=== PATIENT | female | born 1985 | race Caucasian/White ===

== ENCOUNTER 2016-04-05 19:14 | Emergency (ER) | payer BC ==
[2016-04-05 20:47] VITALS: BP 96/51
[2016-04-05] MEDS ORDERED: Fluconazole 100 MG TAB* TAB PO ONE (21:32)
--- NOTE | 2016-04-05 21:41 | UC ---
Complaint Female HPI - HPI Summary HPI Summary: vaginal itching, redness, swelling burning. No rash. Feels like prior yeast infections, though she has also had bacterial vaginosis and wishes to be tested. No fever. No abd pain. NO vomiting. No concern re GC/chlamydia - History Of Current Complaint Chief Complaint: UCGeneralIllness Stated Complaint: BACK PAIN, PAINFUL URINATION Time Seen by Provider: 04/05/16 21:02 Hx Obtained From: Patient Hx Last Menstrual Period: 03/19/16 Onset/Duration: Gradual Onset, Lasting Weeks - 1 Timing: Constant Severity Initially: Mild Severity Currently: Moderate Character: Dull Aggravating Factor(s): Nothing Alleviating Factor(s): Nothing Associated Signs And Symptoms: Positive: Vaginal Discharge, Genital Swelling - mild vulvar swelling. Negative: Nausea, Vomiting(# Of Episodes =), Genital Blisters, Retained Foregin Body (Specify) Related Hx: Similar Episode/Dx as: - yeast, bacterial overgrowth - Risk Factors Ectopic Risk Factor: Negative Ovarian Torsion Risk Factor: Negative - Allergies/Home Medications Allergies/Adverse Reactions: Allergies Allergy/AdvReac Type Severity Reaction Status Date / Time No Known Allergies Allergy Verified 04/05/16 20:47 Home Medications: Home Medications Vaginal Yeast Cream 1 applic DAILY PRN 04/05/16 [History] PMH/Surg Hx/FS Hx/Imm Hx Previously Healthy: Yes - Surgical History Surgical History: Yes Surgery Procedure, Year, and Place: 3 acl surgeries - Social History Occupation: Employed Full-time Lives: With Family Alcohol Use: Rare Substance Use Type: None Smoking Status (MU): Never Smoked Tobacco - Immunization History Most Recent Influenza Vaccination: [id number] Review of Systems Constitutional: Negative Skin: Negative Eyes: Negative ENT: Negative Respiratory: Negative Cardiovascular: Negative Gastrointestinal: Negative Genitourinary: Other - vaginal itching/burning Motor: Negative Neurovascular: Negative Musculoskeletal: Negative Neurological: Negative Psychological: Negative All Other Systems Reviewed And Are Negative: Yes Physical Exam Triage Information Reviewed: Yes Appearance: Well-Appearing, No Pain Distress, Well-Nourished Vital Signs: Initial Vital Signs Temp 99.5 F 04/05/16 20:41 Pulse 62 04/05/16 20:41 Resp 17 04/05/16 20:41 BP 96/51 04/05/16 20:41 Pulse Ox 100 04/05/16 20:41 Vital Signs Reviewed: Yes Eye Exam: Normal Neck exam: Normal Respiratory Exam: Normal Cardiovascular Exam: Normal Abdomen Description: Positive: Other: - I did not examine her vagina. She did her own Affirm swab. Musculoskeletal Exam: Normal Neurological Exam: Normal Psychological Exam: Normal Skin Exam: Normal Complaint Female Dx - Differential Dx/Diagnosis Differential Diagnosis/HQI/PQRI: Sexually Transmitted Disease Provider Diagnoses: vaginal yeast infection Discharge - Discharge Plan Condition: Stable Disposition: HOME Prescriptions: Fluconazole [Diflucan 150 MG (NF)] 150 mg PO ONCE #1 tab Patient Education Materials: Vulvovaginal Candidiasis (ED) Referrals: KATRIN Hester [Primary Care Provider] - Additional Instructions: We sent off tests for vaginal yeast, bacterial overgrowth, and trichomonas. Results will be available in 2-3 days. If we see anything other than a yeast infection, we will contact you. Call here on Wed to double-check results if you haven't heard anything.
== END 2016-04-05 21:59 | disposition home or self-care (01) ==
LOC: UCCORT 19:14
DX: B37.3 Candidiasis of vulva and vagina (principal)
CPT/HCPCS: 87480; 87510; 87660; 99202; A9270-GY; G0463

== ENCOUNTER 2016-07-04 20:25 | Emergency (ER) | payer BC ==
[2016-07-04 20:47] VITALS: BP 106/55
--- NOTE | 2016-07-04 21:12 | UC ---
Throat Pain/Nasal [place] HPI - History of Current Complaint Chief Complaint: UCGeneralIllness Stated Complaint: SINUS Time Seen by Provider: 07/04/16 21:02 Hx Obtained From: Patient Hx Last Menstrual Period: 06/16/16 ?: No Onset/Duration: Gradual Onset, Lasting Weeks, Still Present Severity: Moderate Cough: None Associated Signs & Symptoms: Positive: Sinus Discomfort, Nasal Discharge, Fever Related History: T & A - Epiglottits Risk Factors Epiglottis Risk Factors: Negative - Allergies/Home Medications Allergies/Adverse Reactions: Allergies Allergy/AdvReac Type Severity Reaction Status Date / Time No Known Allergies Allergy Verified 07/04/16 20:47 Home Medications: Home Medications Pseudoephedrine HCL ER TAB* [Sudafed 12 Hour*] 120 mg PO BID 07/04/16 [History Confirmed 07/04/16] PMH/Surg Hx/FS Hx/Imm Hx Previously Healthy: No - ADHD - Surgical History Surgical History: Yes Surgery Procedure, Year, and Place: 3 acl surgeries - Family History Known Family History: Positive: Cardiac Disease, Hypertension, Diabetes - Social History Occupation: Employed Full-time Lives: With Family Alcohol Use: Rare Substance Use Type: None Smoking Status (MU): Never Smoked Tobacco Have You Smoked in the Last Year: No - Immunization History Most Recent Influenza Vaccination: [id number] Review of Systems Constitutional: Fever ENT: Sore Throat, Nasal Discharge All Other Systems Reviewed And Are Negative: Yes Physical Exam Triage Information Reviewed: Yes Appearance: No Pain Distress, Well-Nourished, Ill-Appearing Vital Signs: Initial Vital Signs Temp 99.8 F 07/04/16 20:43 Pulse 63 07/04/16 20:43 Resp 16 07/04/16 20:43 BP 106/55 07/04/16 20:43 Pulse Ox 100 07/04/16 20:43 Vital Signs Reviewed: Yes Eyes: Positive: Conjunctiva Clear ENT: Positive: Nasal congestion, TMs normal Neck exam: Normal Respiratory Exam: Normal Cardiovascular Exam: Normal Musculoskeletal Exam: Normal Neurological Exam: Normal Psychological Exam: Normal Skin Exam: Normal Throat Pain/Nasal Course/Dx - Differential Dx/Diagnosis Differential Diagnosis/HQI/PQRI: Pharyngitis, Sinusitis, URI Provider Diagnoses: Acute URI. Acute Sinusitis Discharge - Discharge Plan Condition: Stable Disposition: HOME Prescriptions: Amoxicillin (*) [Amoxicillin 875 MG (*)] 875 mg PO BID #20 tab Patient Education Materials: Upper Respiratory Infection (ED), Sinusitis (ED), Amoxicillin (By mouth) Additional Instructions: NASAL SPRAYS AND DROPS: Afrin in the PUMP/ MIST bottle. Tilt your head down and look at the floor while doing a strong sniff with the spray. Decongestant nasal sprays and drops often give dramatic relief from congestion. They are often recommended for patients with sinus infection to assist with sinus drainage. Persons with high blood pressure should consult the doctor before using these nasal sprays. Afrin and Joey-Synephrine are common [id number] preparations. They should not be used for more than five days, as "rebound" congestion can occur - - the congestion flares as the drug wears off. A way of dealing with this rebound congestion problem is to medicate only one nostril each time, allowing the other nostril to recover from the medicine' s effects. When you no longer need the drug during the day, spray only one nostril each night. This helps you sleep well without severe rebound congestion. Call the doctor if you develop severe headache, palpitations, or chest pain. [employer] SINUS RINSE: CHECK OUT AT [employer] Saline nasal wash helps with mucous, allergies and congestion. It can be used up to twice a day or only as needed. Use lukewarm tap water. It does not have to be sterilized or distilled water. Do 1/3 on each side and snort out of both nostrils. Repeat the process with 1/6 of the bottle on each side with snorting in between to finish the solution in the bottle
[2016-07-04] MEDS ORDERED: Amoxicillin CAP* 500 MG PO ONE (21:18)
== END 2016-07-04 21:50 | disposition home or self-care (01) ==
LOC: UCCORT 20:25
DX: J06.9 Acute upper respiratory infection, unspecified (principal); J01.90 Acute sinusitis, unspecified
CPT/HCPCS: 99212; A9270-GY; G0463

== ENCOUNTER 2017-01-22 13:35 | Emergency (ER) | payer BC ==
[2017-01-22 14:24] VITALS: BP 99/62
--- NOTE | 2017-01-22 14:56 | UC ---
Throat Pain/Nasal [place] HPI - HPI Summary HPI Summary: was on antibiotics for strep throat about 3 weeks ago when they ended she got laryngitis and sinus pain with cough and sneeze---also has thick wite vaginal discharge that is thick white and has no odor - History of Current Complaint Chief Complaint: UCGeneralIllness Stated Complaint: SINUS Time Seen by Provider: 01/22/17 14:39 Hx Obtained From: Patient Hx Last Menstrual Period: 01/09/17 ?: No Onset/Duration: Sudden Onset, Lasting Days, Still Present Severity: Moderate Pain Intensity: 5 Pain Scale Used: 0-10 Numeric Cough: Nonproductive Associated Signs & Symptoms: Positive: Sinus Discomfort, Nasal Discharge - Allergies/Home Medications Allergies/Adverse Reactions: Allergies Allergy/AdvReac Type Severity Reaction Status Date / Time No Known Allergies Allergy Verified 01/22/17 14:24 Home Medications: Home Medications Amphetamine-Dextroamphetamine [Adderall 10 mg-] 1 tab PO DAILY 01/22/17 [ History Confirmed 01/22/17] Ibuprofen TAB* [Advil TAB*] 400 mg PO Q6H PRN 01/22/17 [History Confirmed ] Phenylephrine W/ Acetaminophen [Tylenol Sinus Congestion 5-325 mg] 2 tab PO ONCE PRN 01/22/17 [History Confirmed 01/22/17] PMH/Surg Hx/FS Hx/Imm Hx Previously Healthy: Yes - Surgical History Surgical History: Yes Surgery Procedure, Year, and Place: 3 acl surgeries - Family History Known Family History: Positive: Cardiac Disease, Hypertension, Diabetes - Social History Occupation: Employed Full-time Lives: With Family Alcohol Use: Rare Substance Use Type: None Smoking Status (MU): Never Smoked Tobacco Have You Smoked in the Last Year: No - Immunization History Most Recent Influenza Vaccination: [id number] Review of Systems Constitutional: Negative Skin: Negative Eyes: Negative ENT: Negative Respiratory: Negative Cardiovascular: Negative Gastrointestinal: Negative Genitourinary: Negative Motor: Negative Neurovascular: Negative Musculoskeletal: Negative Neurological: Negative Psychological: Negative Is Patient Immunocompromised?: No All Other Systems Reviewed And Are Negative: Yes Physical Exam Triage Information Reviewed: Yes Appearance: Well-Appearing, No Pain Distress, Well-Nourished Vital Signs: Initial Vital Signs Temp 98.2 F 01/22/17 14:18 Pulse 71 01/22/17 14:18 Resp 18 01/22/17 14:18 BP 99/62 01/22/17 14:18 Pulse Ox 100 01/22/17 14:18 Vital Signs Reviewed: Yes Eye Exam: Normal Eyes: Positive: Conjunctiva Clear ENT Exam: Normal ENT: Positive: Normal ENT inspection, Hearing grossly normal, Pharynx normal, Nasal congestion, Nasal drainage, TMs normal. Negative: Tonsillar swelling, Tonsillar exudate, Trismus, Muffled/hoarse voice Dental Exam: Normal Neck exam: Normal Neck: Positive: Supple, Nontender, No Lymphadenopathy Respiratory Exam: Normal Respiratory: Positive: Chest non-tender, Lungs clear, Normal breath sounds, No respiratory distress, No accessory muscle use Cardiovascular Exam: Normal Cardiovascular: Positive: RRR, No Murmur, Pulses Normal, Brisk Capillary Refill Abdominal Exam: Normal Abdomen Description: Positive: Nontender, No Organomegaly, Soft. Negative: CVA Tenderness (R), CVA Tenderness (L) Bowel Sounds: Positive: Present Musculoskeletal Exam: Normal Neurological Exam: Normal Neurological: Positive: Alert, Muscle Tone Normal Psychological Exam: Normal Skin Exam: Normal Throat Pain/Nasal Course/Dx - Course Assessment/Plan: diflucan, afrin and flonase, increase fluids, tylenol ibuprofen prn follow with pcp - Differential Dx/Diagnosis Provider Diagnoses: Viral illness, vulvovaginal candidiasis Discharge - Discharge Plan Condition: Stable Disposition: HOME Prescriptions: Fluconazole [Diflucan 150 MG (NF)] 150 mg PO ONCE #2 tab Fluticasone NASAL SPRAY 50MCG* [Flonase NASAL SPRAY 50MCG*] 2 spray BOTH NARES DAILY #1 btl Patient Education Materials: Vulvovaginal Candidiasis (ED), Rhinosinusitis (ED) Referrals: KATRIN Hester [Primary Care Provider] - If Needed
== END 2017-01-22 15:07 | disposition home or self-care (01) ==
LOC: UCCORT 13:35
DX: B34.9 Viral infection, unspecified (principal); B37.3 Candidiasis of vulva and vagina
CPT/HCPCS: 99212; G0463

== ENCOUNTER 2017-03-06 19:37 | Emergency (ER) | payer BC ==
[2017-03-06 19:51] VITALS: BP 103/58
--- NOTE | 2017-03-06 20:20 | UC ---
UC General HPI - HPI Summary HPI Summary: C/O body aches, headaches, fatigue over the last 2 weeks. No fevers or cough. - History of Current Complaint Chief Complaint: UCGeneralIllness Stated Complaint: HEADACHE,ACHY,EXHAUSTED Time Seen by Provider: 03/06/17 20:11 Hx Obtained From: Patient Hx Last Menstrual Period: 02/08/17 Onset/Duration: Gradual Onset, Lasting Weeks - 2, Worse Since - onset Onset Severity: Mild Current Severity: Moderate Pain Location at: Headaches behind the eyeballs. Associated Signs & Symptoms: Positive: Dizziness, Headache, Weakness - Allergy/Home Medications Allergies/Adverse Reactions: Allergies Allergy/AdvReac Type Severity Reaction Status Date / Time No Known Allergies Allergy Verified 03/06/17 19:51 PMH/Surg Hx/FS Hx/Imm Hx Previously Healthy: Yes - Surgical History Surgical History: Yes Surgery Procedure, Year, and Place: 3 acl surgeries - Family History Known Family History: Positive: Cardiac Disease, Hypertension, Diabetes - Social History Occupation: Employed Full-time Lives: With Family Alcohol Use: Rare Substance Use Type: None Smoking Status (MU): Never Smoked Tobacco Have You Smoked in the Last Year: No - Immunization History Most Recent Influenza Vaccination: [id number] Review of Systems Constitutional: Chills, Fatigue Musculoskeletal: Myalgia Neurological: Headache, Weakness Is Patient Immunocompromised?: No All Other Systems Reviewed And Are Negative: Yes Physical Exam Triage Information Reviewed: Yes Appearance: No Pain Distress, Well-Nourished, Ill-Appearing - appears fatigued Vital Signs: Initial Vital Signs Temp 98.2 F 03/06/17 19:42 Pulse 72 03/06/17 19:42 Resp 20 03/06/17 19:42 BP 103/58 03/06/17 19:42 Pulse Ox 100 03/06/17 19:42 Vital Signs Reviewed: Yes Eyes: Positive: Conjunctiva Clear ENT: Positive: Pharynx normal, Nasal congestion - with allergic changes, TMs normal Neck exam: Normal Respiratory Exam: Normal Cardiovascular Exam: Normal Abdominal Exam: Normal Bowel Sounds: Positive: Present Musculoskeletal Exam: Normal Neurological: Positive: Fatigued Psychological Exam: Normal Skin Exam: Normal Course/Dx - Differential Dx - Multi-Symptom Differential Diagnoses: Metabolic Abnormality, Sepsis, Urinary Tract Infection, Other - Mononucleosis Provider Diagnoses: Chronic sinusitis. Allergic rhinitis Discharge - Discharge Plan Condition: Stable Disposition: HOME Prescriptions: Amoxicillin/Clavulanate TAB* [Augmentin TAB 875*] 875 mg PO BID #20 tab predniSONE TAB* [Deltasone TAB*] 20 mg PO DAILY #18 tab Patient Education Materials: Allergic Rhinitis (ED), Sinusitis (ED), Amoxicillin/Clavulanate Potassium (By mouth), Prednisone (By mouth), Fatigue (ED ) Referrals: KATRIN Hester [Primary Care Provider] - Additional Instructions: NEILMED SINUS RINSE: CHECK OUT AT [employer] Saline nasal wash helps with mucous, allergies and congestion. It can be used up to twice a day or only as needed. Use lukewarm tap water. It does not have to be sterilized or distilled water. Do 1/3 on each side and snort out of both nostrils. Repeat the process with 1/6 of the bottle on each side with snorting in between to finish the solution in the bottle
[2017-03-06] MEDS ORDERED: Amoxicillin/Clavulanate TAB* 875 MG PO ONE (20:43)
--- OUTSIDE RECORDS SUMMARY | 2017-03-06 21:18 | XMS REPORT | Clinical Summary ---
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 Allergic 477.9 Active KATTY Allergic rhinitis d/t / GALLERANI rhinitis, other PA cause allergen unspecified Breast cyst, 610.0 Active CRISTINA LELE Solitary cyst right 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 of breast Medication List Medication Instructions Start Stop Generic NDC Status Provider Patient Date Date Name Instruction ADDERALL XR 1 by mouth AMPHETAM [id number] Active CRISTINA 15 MG ORAL dailyMDD : 09/04 INE-DEXT LELE 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 CAPSULE 1Reference #: ROAMPHET EXTENDED [id number] AMINE RELEASE 24 HOUR Immunizations Vaccine Administration Date Value Standard Description PPD results in mm 0 TB-PPD, interpretation of negative results influenza immunization (Flu given influenza virus vaccine, Vax) has been administered unspecified formulation Vital Signs Date Name Value Unit Range Description blood pressure, diastolic 58 mm[Hg] BP pantoja blood pressure, systolic 91 mm[Hg] BP sys height E&M 67.50 [in_us] Bdy height pulse rate E&M 63 /min Heart rate respiratory rate E&M 18 /min Resp rate temperature E&M 97.9 [degF] Body temperature weight E&M 136.60 [lb_av] Weight Measured blood pressure, diastolic 74 mm[Hg] BP pantoja blood pressure, systolic 106 mm[Hg] BP sys height E&M 67.50 [in_us] Bdy height pulse rate E&M 63 /min Heart rate respiratory rate E&M 14 /min Resp rate temperature E&M 99.4 [degF] Body temperature weight E&M 141 [lb_av] Weight Measured blood pressure, diastolic 53 mm[Hg] BP pantoja blood pressure, systolic 86 mm[Hg] BP sys height E&M 67.5 [in_us] Bdy height pulse rate E&M 72 /min Heart rate respiratory rate E&M 16 /min Resp rate temperature E&M 98.2 [degF] Body temperature weight E&M 138 [lb_av] Weight Measured blood pressure, diastolic 56 mm[Hg] BP pantoja blood pressure, systolic 112 mm[Hg] BP sys height E&M 67.50 [in_us] Bdy height pulse rate E&M 82 /min Heart rate respiratory rate E&M 12 /min Resp rate temperature E&M 98.3 [degF] Body temperature weight E&M 141 [lb_av] Weight Measured blood pressure, diastolic 57 mm[Hg] BP pantoja blood pressure, systolic 92 mm[Hg] BP sys height E&M 67.5 [in_us] Bdy height pulse rate E&M 62 /min Heart rate respiratory rate E&M 18 /min Resp rate temperature E&M 98.1 [degF] Body temperature weight E&M 140 [lb_av] Weight Measured blood pressure, diastolic 66 mm[Hg] BP pantoja blood pressure, systolic 97 mm[Hg] BP sys height E&M 67.5 [in_us] Bdy height pulse rate E&M 77 /min Heart rate respiratory rate E&M 16 /min Resp rate temperature E&M 97.9 [degF] Body temperature weight E&M 146 [lb_av] Weight Measured blood pressure, diastolic 69 mm[Hg] BP pantoja blood pressure, systolic 103 mm[Hg] BP sys height E&M 67.50 [in_us] Bdy height pulse rate E&M 77 /min Heart rate respiratory rate E&M 10 /min Resp rate temperature E&M 97.8 [degF] Body temperature weight E&M 150 [lb_av] Weight Measured blood pressure, diastolic 52 mm[Hg] BP pantoja blood pressure, systolic 94 mm[Hg] BP sys height E&M 67.50 [in_us] Bdy height pulse rate E&M 57 /min Heart rate respiratory rate E&M 16 /min Resp rate temperature E&M 98.1 [degF] Body temperature weight E&M 150 [lb_av] Weight Measured Encounters Code Encounter Date Provider Facility CPT-07808 Ofc Vst, Est Level CRISTINA ROYAL NP [facility] III 10:03:17 EDT CPT-43315 Ofc Vst, Est Level CRISTINA ROYAL [facility] IV 20:38:54 EDT CPT-70264 Ofc Vst, Est Level CRISTINA ROYAL NP [facility] III 13:30:26 EDT CPT-89400 Ofc Vst, Est Level CRISTINA ROYAL NP [facility] III 10:47:30 EDT CPT-54340 Ofc Vst, Est Level KATTY FONG [facility] II 15:46:40 EDT CPT-31337 Ofc Vst, Est Level CRISTINA ROYAL [facility] III 11:24:52 EST CPT-33756 Ofc Vst, Est Level CRISTINA ROYAL [facility] III 11:14:18 EST CPT-95015 Ofc Vst, Est Level KATTY FONG [facility] III 09:22:40 EST CPT-32859 Ofc Vst, Est Level DESTINEY RIVERS [facility] III 11:14:34 EDT PA CPT-12383 Ofc Vst, Est Level [facility] III 09:30:25 EDT TOMY 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 CPT-75789 Ofc Vst, Est Level [facility] III 11:28:51 EST KORYETH 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 CPT-27385 Ofc Vst, Est Level KATTY FONG [facility] III 14:06:56 EDT CPT-23664 Ofc Vst, Est Level [facility] IV 14:24:22 EDT KORYETH 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 CPT-45011 Ofc Vst, Est Level DAYANNA RANDHAWA NP [facility] III 17:35:34 EDT CPT-34365 Ofc Vst, Est Level KATTY FONG [facility] III 13:09:06 EDT CPT-87165 Ofc Vst, Est Level DESTINEY RIVERS [facility] III 17:08:55 EST PA CPT-48059 Ofc Vst, Est Level DESTINEY FONG [facility] III 08:16:19 EDT CPT-59850 Ofc Vst, Est Level DESTINEY FONG [facility] IV 11:58:03 EST CPT-43454 Ofc Vst, Est Level BOBBI FONG [facility] IV 14:03:57 EDT CPT-06278 Ofc Vst, Est Level TEVIN FERNANDEZ NP [facility] III 13:52:56 EDT CPT-31605 Ofc Vst, Est Level KELSEY VERGARA [facility] III 10:12:25 EDT 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 Procedures Code Procedure Name Date Entry Date Standard Description CPT-16506 ARTHRS AIDED ANT CRUCIATE LIGM RPR/AGMNTJ/RCNST 00:00:00 EDT CPT-43680 TONSILLECTOMY&ADENOIDE CTOMY UNDER AGE 12 00:00:00 EST CPT-35316 [place] 11:14:33 EDT CPT-32941 Urine Dip - In House 11:28:50 EST CPT-58877 Urine Dip - In House 11:35:02 EDT CPT-28432 Urine Dip - In House 11:53:03 EST CPT-02011 Venipuncture 14:03:57 EDT CPT-30637 Urine Preg Test - In House 13:52:56 EDT CPT-85333 Urine Dip - In House 13:52:56 EDT CPT-06241 PPD 09:11:23 EDT CPT-53404 PPD 18:59:49 EDT
[2017-03-07 14:24] LABS: EBV Response NO
[2017-03-07 14:47] LABS: Hematocrit 40 % (35-47); Hemoglobin 13.5 g/dl (12.0-16.0); Mean Corpuscular HGB Conc 34 g/dl (31-36); Mean Corpuscular Hemoglobin 32 pg (27-31); Mean Corpuscular Volume 93 fL (80-97); Mean Platelet Volume 9 um3 (7.4-10.4); Red Blood Count 4.27 10^6/ul (4.0-5.4); Red Cell Distribution Width 13 % (10.5-15); White Blood Count 7.1 10^3/ul (3.5-10.8)
[2017-03-07 14:51] LABS: Comments Flag Yes
[2017-03-07 14:52] LABS: Add Diff/Slide Review? Slide Review Added
[2017-03-07 15:12] LABS: Mono Internal Control QC Line Present
[2017-03-07 15:26] LABS: Albumin 4.3 g/dL (3.2-5.2); BUN/Creatinine Ratio 17.1 (8-20); Calcium 8.7 mg/dL (8.6-10.3); EGFR African American 114.9 (>60); EGFR Non-African American 89.4 (>60); Globulin 2.2 g/dL (2-4); Total Bilirubin 3.9 mg/dL (0.2-1.0); Total Protein 6.5 g/dL (6.4-8.9)
== END 2017-03-06 21:16 | disposition home or self-care (01) ==
LOC: UCCORT 19:37
DX: J32.9 Chronic sinusitis, unspecified (principal); J30.9 Allergic rhinitis, unspecified
CPT/HCPCS: 36415; 80053; 85025; 86308; 87502; 99212; A9270-GY; G0463

== ENCOUNTER 2017-11-14 15:45 | Emergency (ER) | payer BC ==
[2017-11-14 16:08] VITALS: BP 108/62
--- NOTE | 2017-11-14 16:45 | UC ---
Lower Extremity/Ankle HPI - HPI Summary HPI Summary: 32-year-old female who presents here status post an inversion injury of her left ankle. This occurred yesterday. She is able to bear weight but it is quite painful. She has no prior history of ankle injuries. - History of Current Complaint Chief Complaint: UCTrauma Stated Complaint: LEFT ANKLE PAIN Time Seen by Provider: 11/14/17 16:26 Hx Obtained From: Patient Hx Last Menstrual Period: 10/26/17 Onset/Duration: Sudden Onset, Lasting Weeks Severity Initially: Severe Severity Currently: Mild Pain Intensity: 4 Pain Scale Used: 0-10 Numeric Aggravating Factor(s): Standing, Ambulation Alleviating Factor(s): Rest Able to Bear Weight: Yes - Allergies/Home Medications Allergies/Adverse Reactions: Allergies Allergy/AdvReac Type Severity Reaction Status Date / Time No Known Allergies Allergy Verified 03/06/17 19:51 PMH/Surg Hx/FS Hx/Imm Hx Previously Healthy: Yes - Surgical History Surgical History: Yes Surgery Procedure, Year, and Place: 3 acl surgeries - Family History Known Family History: Positive: Cardiac Disease, Hypertension, Diabetes - Social History Alcohol Use: Rare Substance Use Type: None Smoking Status (MU): Never Smoked Tobacco Have You Smoked in the Last Year: No - Immunization History Most Recent Influenza Vaccination: 6320-5144 Review of Systems Constitutional: Negative Skin: Negative Eyes: Negative ENT: Negative Respiratory: Negative Cardiovascular: Negative Gastrointestinal: Negative Genitourinary: Negative Motor: Negative Neurovascular: Negative Musculoskeletal: Arthralgia Neurological: Negative Psychological: Negative Is Patient Immunocompromised?: No All Other Systems Reviewed And Are Negative: Yes Physical Exam Triage Information Reviewed: Yes Appearance: Well-Appearing, No Pain Distress, Well-Nourished Vital Signs: Initial Vital Signs Temp 98.7 F 11/14/17 16:04 Pulse 60 11/14/17 16:04 Resp 18 11/14/17 16:04 BP 108/62 11/14/17 16:04 Pulse Ox 100 11/14/17 16:04 Vital Signs Reviewed: Yes Eyes: Positive: Conjunctiva Clear ENT: Positive: Hearing grossly normal, Uvula midline. Negative: Nasal congestion, Nasal drainage, Trismus, Muffled voice, Hoarse voice Neck: Positive: Supple, Nontender, No Lymphadenopathy Respiratory: Positive: Lungs clear, Normal breath sounds, No respiratory distress, No accessory muscle use Cardiovascular: Positive: RRR, No Murmur Musculoskeletal: Positive: Edema @ - left LM, tender distal fibula > deltoid lig , base of 5th NT, Other: - antalgic gait Neurological: Positive: Alert Psychological Exam: Normal Diagnostics - Radiology No standard instances Xray Interpretation: No Acute Changes - except lat STS Radiology Interpretation Completed By: Radiologist Lower Extremity Course/Dx - Differential Dx/Diagnosis Provider Diagnoses: left ankle sprain Discharge - Sign-Out/Discharge Documenting (check all that apply): Patient Departure - Discharge Plan Condition: Stable Disposition: HOME Patient Education Materials: Ankle Sprain (ED), R.I.C.E. Treatment (ED) Referrals: [facility] [Outside] - 2 Weeks (if not better ASK FOR A WOOD APPT) Additional Instructions: tylenol or advil for pain recheck for new or worsening symptoms recheck if not better in 2 weeks - Billing Disposition and Condition Condition: STABLE Disposition: Home
--- NOTE | 2017-11-14 17:02 | RAD ---
INDICATION: Left ankle injury. TECHNIQUE: 3 views of the left ankle were obtained. FINDINGS: Soft tissue swelling is noted along the anterolateral aspect of the ankle. No fracture is seen. Joint spaces appear maintained. IMPRESSION: SOFT TISSUE SWELLING, NO FRACTURE IS SEEN.
== END 2017-11-14 17:38 | disposition home or self-care (01) ==
LOC: UCCORT 15:45
DX: S93.402A Sprain of unspecified ligament of left ankle, initial encounter (principal); X50.0XXA Overexertion from strenuous movement or load, initial encounter; Y93.9 Activity, unspecified; Y92.9 Unspecified place or not applicable
CPT/HCPCS: 99213; G0463

== ENCOUNTER 2018-04-17 15:22 | Emergency (ER) | payer BC ==
[2018-04-17 15:38] VITALS: BP 83/66
--- NOTE | 2018-04-17 16:02 | UC ---
Throat Pain/Nasal [place] HPI - HPI Summary HPI Summary: Pt presents with c/o nasal congestion, sinus pressure and pain and c/o teeth pain with pressure X1 week. - History of Current Complaint Chief Complaint: UCRespiratory Stated Complaint: SINUSES Time Seen by Provider: 04/17/18 15:36 Hx Obtained From: Patient Hx Last Menstrual Period: 04/14/18 ?: No Onset/Duration: Gradual Onset, Lasting Days, Still Present Severity: Moderate Pain Intensity: 6 Cough: None Associated Signs & Symptoms: Positive: Sinus Discomfort - Epiglottits Risk Factors Epiglottis Risk Factors: Negative - Allergies/Home Medications Allergies/Adverse Reactions: Allergies Allergy/AdvReac Type Severity Reaction Status Date / Time No Known Allergies Allergy Verified 04/17/18 15:38 PMH/Surg Hx/FS Hx/Imm Hx Previously Healthy: Yes - Surgical History Surgical History: Yes Surgery Procedure, Year, and Place: 3 acl surgeries - Family History Known Family History: Positive: Cardiac Disease, Hypertension, Diabetes - Social History Occupation: Employed Full-time Lives: With Family Alcohol Use: Rare Substance Use Type: None Smoking Status (MU): Never Smoked Tobacco Have You Smoked in the Last Year: No - Immunization History Most Recent Influenza Vaccination: [id number] Review of Systems All Other Systems Reviewed And Are Negative: Yes Constitutional: Positive: Fatigue Skin: Positive: Negative Eyes: Positive: Negative ENT: Positive: Sinus Congestion, Sinus Pain/Tenderness Respiratory: Positive: Negative Cardiovascular: Positive: Negative Gastrointestinal: Positive: Negative Genitourinary: Positive: Negative Motor: Positive: Negative Neurovascular: Positive: Negative Musculoskeletal: Positive: Negative Neurological: Positive: Headache Psychological: Positive: Negative Is Patient Immunocompromised?: No Physical Exam Triage Information Reviewed: Yes Appearance: Ill-Appearing Vital Signs: Initial Vital Signs Temp 98.9 F 04/17/18 15:35 Pulse 109 04/17/18 15:35 Resp 19 04/17/18 15:35 BP 83/66 04/17/18 15:35 Pulse Ox 98 04/17/18 15:35 Vital Signs Reviewed: Yes Eye Exam: Normal ENT: Positive: Nasal congestion, Sinus tenderness Dental Exam: Normal Neck exam: Normal Respiratory Exam: Normal Musculoskeletal Exam: Normal Neurological Exam: Normal Psychological Exam: Normal Skin Exam: Normal Throat Pain/Nasal Course/Dx - Differential Dx/Diagnosis Differential Diagnosis/HQI/PQRI: Sinusitis, URI Provider Diagnosis: Sinusitis Discharge - Sign-Out/Discharge Documenting (check all that apply): Patient Departure All imaging exams completed and their final reports reviewed: No Studies - Discharge Plan Condition: Stable Disposition: HOME Prescriptions: Amoxicillin PO (*) [Amoxicillin 875 MG (*)] 875 mg PO Q12H #20 tab Fluconazole 150 MG TAB* [Diflucan 150 MG TAB*] 150 mg PO ONCE #2 tablet Patient Education Materials: Sinusitis (ED) Referrals: Mary Viveros NP [Primary Care Provider] - If Needed - Billing Disposition and Condition Condition: STABLE Disposition: Home
== END 2018-04-17 16:17 | disposition home or self-care (01) ==
LOC: UCCORT 15:22
DX: J32.9 Chronic sinusitis, unspecified (principal)
CPT/HCPCS: 99212; G0463

== ENCOUNTER 2018-08-16 08:41 | Emergency (ER) | payer BC ==
[2018-08-16 09:14] VITALS: BP 98/51
--- NOTE | 2018-08-16 10:05 | UC ---
Eye Complaint HPI - HPI Summary HPI Summary: bilateral eye redness, itchy x 1 day no discharge, no change in vision , no cold symptoms, no fever, no chills - History of Current Complaint Chief Complaint: UCEye Stated Complaint: BI LAT EYE CONCERN Time Seen by Provider: 08/16/18 09:28 Hx Obtained From: Patient Hx Last Menstrual Period: 07/17/18 ?: No Onset/Duration: Gradual Onset, Lasting Days - 1, Still Present Timing: Constant Severity Initially: Mild Severity Currently: Mild Pain Intensity: 0 Pain Scale Used: 0-10 Numeric Aggravating Factor(s): Nothing Alleviating Factor(s): Nothing Associated Signs And Symptoms: Negative: Photophobia, Drainage (Clear), Drainage (Purulent), Vision Impairment Bilateral, Vision Impairment Right, Vision Impairment Left, Fever, Swelling - Allergies/Home Medications Allergies/Adverse Reactions: Allergies Allergy/AdvReac Type Severity Reaction Status Date / Time No Known Allergies Allergy Verified 08/16/18 09:11 Home Medications: Home Medications NK [No Home Medications Reported] 08/16/18 [History Confirmed 08/16/18] PMH/Surg Hx/FS Hx/Imm Hx Previously Healthy: Yes - Surgical History Surgical History: Yes Surgery Procedure, Year, and Place: 3 acl surgeries - Family History Known Family History: Positive: Cardiac Disease, Hypertension, Diabetes - Social History Alcohol Use: Rare Substance Use Type: None Smoking Status (MU): Never Smoked Tobacco Have You Smoked in the Last Year: No - Immunization History Most Recent Influenza Vaccination: [id number] Review of Systems All Other Systems Reviewed And Are Negative: Yes Constitutional: Positive: Negative Skin: Positive: Negative Eyes: Positive: Eye Redness ENT: Positive: Negative Respiratory: Positive: Negative Cardiovascular: Positive: Negative Is Patient Immunocompromised?: No Physical Exam Triage Information Reviewed: Yes Appearance: Well-Appearing, No Pain Distress, Well-Nourished Vital Signs: Initial Vital Signs Temp 98.6 F 08/16/18 09:11 Pulse 56 08/16/18 09:11 Resp 18 08/16/18 09:11 BP 98/51 08/16/18 09:11 Pulse Ox 99 08/16/18 09:11 Vital Signs Reviewed: Yes Eye Exam: Normal Eyes: Positive: Conjunctiva Clear. Negative: Conjunctiva Inflamed, Discharge ENT Exam: Normal ENT: Positive: Normal ENT inspection, Hearing grossly normal, Pharynx normal Neck exam: Normal Neck: Positive: Supple, Nontender, No Lymphadenopathy Respiratory: Positive: Chest non-tender, Lungs clear, Normal breath sounds Cardiovascular: Positive: RRR, No Murmur, Pulses Normal Skin Exam: Normal Eye Complaint Course/Dx - Differential Dx/Diagnosis Provider Diagnosis: Eye irritation Discharge - Sign-Out/Discharge Documenting (check all that apply): Patient Departure All imaging exams completed and their final reports reviewed: No Studies - Discharge Plan Condition: Stable Disposition: HOME Referrals: Mary Viveros NP [Primary Care Provider] - Additional Instructions: no pink eye noted bilateral eye irritation , no need for eye drops wash hands frequently , do not rub your eyes follow up if having eye pain , discharge, change in vision , photophobia - Billing Disposition and Condition Condition: STABLE Disposition: Home
== END 2018-08-16 09:47 | disposition home or self-care (01) ==
LOC: UCCORT 08:41
DX: H57.89 Other specified disorders of eye and adnexa (principal)
CPT/HCPCS: 99211; G0463

== ENCOUNTER 2018-09-17 09:46 | Emergency (ER) | payer BC ==
[2018-09-17 10:06] VITALS: BP 106/62
--- NOTE | 2018-09-17 10:29 | UC ---
Complaint Female HPI - HPI Summary HPI Summary: 33-year-old female who started having symptoms of what she thought was a vaginal yeast infection earlier in the week with some vaginal itching, mild discharge and some burning on urination. She then got her menses and then today still had some mild burning on urination and some left lower back pain which she is treated to a possible urinary tract infection. She is sexually active with one partner and that is her who has had a vasectomy in the past. - History Of Current Complaint Chief Complaint: UCGU Stated Complaint: URINARY COMPLAINT Time Seen by Provider: 09/17/18 10:21 Hx Obtained From: Patient Hx Last Menstrual Period: 09/13/18 ?: No Onset/Duration: Gradual Onset Timing: Intermittent Severity Initially: Mild Severity Currently: Mild Pain Intensity: 2 Character: Burning Aggravating Factor(s): Urination, Other - Patient also states that she felt like she had some vaginal burning prior to her getting her period. Associated Signs And Symptoms: Positive: Vaginal Discharge - Whitish vaginal discharge earlier in the week with vaginal itching. - Allergies/Home Medications Allergies/Adverse Reactions: Allergies Allergy/AdvReac Type Severity Reaction Status Date / Time No Known Allergies Allergy Verified 09/17/18 10:01 PMH/Surg Hx/FS Hx/Imm Hx Previously Healthy: Yes - Surgical History Surgical History: Yes Surgery Procedure, Year, and Place: 3 acl surgeries - Family History Known Family History: Positive: Cardiac Disease, Hypertension, Diabetes - Social History Alcohol Use: Rare Substance Use Type: None Smoking Status (MU): Never Smoked Tobacco Have You Smoked in the Last Year: No - Immunization History Most Recent Influenza Vaccination: [id number] Review of Systems All Other Systems Reviewed And Are Negative: Yes Genitourinary: Positive: Frequency, Vaginal/Penile Burning, Vaginal/Penile Itching, Vaginal/Penile Discharge - Patient has some whitish vaginal discharge earlier in the week with some burning and itching. Is Patient Immunocompromised?: No Physical Exam Triage Information Reviewed: Yes Appearance: Well-Appearing, No Pain Distress, Well-Nourished Vital Signs: Initial Vital Signs Temp 97.8 F 09/17/18 10:01 Pulse 51 09/17/18 10:01 Resp 15 09/17/18 10:01 BP 106/62 09/17/18 10:01 Pulse Ox 100 09/17/18 10:01 Vital Signs Reviewed: Yes Eyes: Positive: Conjunctiva Clear ENT: Positive: Hearing grossly normal, Pharynx normal, TMs normal, Uvula midline Neck: Positive: Supple, Nontender, No Lymphadenopathy Respiratory: Positive: Lungs clear, Normal breath sounds, No respiratory distress, No accessory muscle use Cardiovascular: Positive: RRR, No Murmur, Pulses Normal, Brisk Capillary Refill Abdomen Description: Positive: Nontender, No Organomegaly, Soft Bowel Sounds: Positive: Present Musculoskeletal: Positive: Strength Intact, ROM Intact, Other: - Patient has mild pain on palpation to the paraspinal muscles in the LS spine area. She is able to replicate the pain with sitting up straight. Neurological Exam: Normal Psychological Exam: Normal Skin Exam: Normal Complaint Female Dx - Course Course Of Treatment: Patient is comfortable here. Urinalysis is negative although I am going to send it for culture because of her symptoms however I believe she was beginning a vaginal yeast infection then got her menses. She is able to replicate the back pain with movement and it is tender on palpation to the left lower LS spine area. I'm going to treat her for what I think is a vaginal yeast infection (she stated that she thought this might be what she was experiencing) . She can take Motrin for the back pain. She is to recheck with her primary care provider if no improvement and she may go to the emergency room for worsening symptoms such as fever, chills, worsening back pain, vomiting. We will call her with the urine culture results if she needs to be on medication. - Differential Dx/Diagnosis Provider Diagnosis: Yeast infection, Low back strain Discharge - Sign-Out/Discharge Documenting (check all that apply): Patient Departure All imaging exams completed and their final reports reviewed: No Studies - Discharge Plan Condition: Fair Disposition: HOME Prescriptions: Fluconazole 150 MG TAB* [Diflucan 150 MG TAB*] 150 mg PO UC ONCE 1 Days #1 tablet Patient Education Materials: Yeast Infection (ED), Low Back Strain (ED) Referrals: Mary Viveros NP [Primary Care Provider] - Additional Instructions: May take Motrin as needed for pain. We will call you with the culture results if we need to start an antibiotic. Follow-up with your primary care provider as needed. Follow-up in the emergency room if you're back pain worsens or you start having fever or chills and vomiting. - Billing Disposition and Condition Condition: FAIR Disposition: Home
== END 2018-09-17 10:35 | disposition home or self-care (01) ==
LOC: UCCORT 09:46
DX: B37.3 Candidiasis of vulva and vagina (principal); S39.012A Strain of muscle, fascia and tendon of lower back, initial encounter; X58.XXXA Exposure to other specified factors, initial encounter; Y92.9 Unspecified place or not applicable
CPT/HCPCS: 81003; 87086; 99212; G0463

== ENCOUNTER 2018-11-10 09:01 | Emergency (ER) | payer BC ==
--- NOTE | 2018-11-10 09:14 | UC ---
UC General HPI - HPI Summary HPI Summary: 33-year-old woman comes in with a chief complaint of shortness of breath and chest pressure for one week. Patient started on Wellbutrin 2 weeks ago. She initially was at 150 mg a day for one week and then switch over to 300 mg a day one week ago. When she started to 300 mg a day she started feeling short of breath and having some chest pressure. No shortness of breath occurs when she tries to take a deep breath she feels like she cannot take a deep breath. She has some pressure to the left of the sternum that worsens with deep breaths. No fevers or chills no chest congestion. She has no history of deep venous thrombosis or pulmonary emboli. No recent travel no calf pain. She is on a control pill. - History of Current Complaint Stated Complaint: SOB-POSS ALLERGY Time Seen by Provider: 11/10/18 09:07 Hx Last Menstrual Period: 09/13/18 - Allergy/Home Medications Allergies/Adverse Reactions: Allergies Allergy/AdvReac Type Severity Reaction Status Date / Time No Known Allergies Allergy Verified 11/10/18 09:04 Home Medications: Home Medications Hydroxychloroquine TAB* [Plaquenil TAB*] 1.5 tab PO DAILY 11/10/18 [History Confirmed 11/10/18] Norethindr/Eth Estradiol(Nf) [Lo Loestrin Fe (NF)] 1 tab PO DAILY 11/10/18 [ History Confirmed 11/10/18] buPROPion TAB* [Wellbutrin TAB*] 100 mg PO DAILY 11/10/18 [History Confirmed 11/21] PMH/Surg Hx/FS Hx/Imm Hx Previously Healthy: Yes - LUPUS Psychological History: Depression - Surgical History Surgical History: Yes Surgery Procedure, Year, and Place: 3 acl surgeries - Family History Known Family History: Positive: Cardiac Disease, Hypertension, Diabetes - Social History Alcohol Use: Rare Substance Use Type: None Smoking Status (MU): Never Smoked Tobacco Have You Smoked in the Last Year: No - Immunization History Most Recent Influenza Vaccination: [id number] Review of Systems All Other Systems Reviewed And Are Negative: Yes Constitutional: Positive: Negative Skin: Positive: Negative Eyes: Positive: Negative ENT: Positive: Other - DRY THROAT Respiratory: Positive: Shortness Of Breath Cardiovascular: Positive: Chest Pain Gastrointestinal: Positive: Negative Genitourinary: Positive: Negative Motor: Positive: Negative Neurovascular: Positive: Negative Musculoskeletal: Positive: Negative. Negative: Calf Tenderness, Edema Neurological: Positive: Negative Psychological: Positive: Negative Is Patient Immunocompromised?: No Physical Exam Triage Information Reviewed: Yes Appearance: Well-Appearing, No Pain Distress, Well-Nourished Vital Signs Reviewed: Yes Eye Exam: Normal Eyes: Positive: Conjunctiva Clear Neck: Positive: Supple Respiratory: Positive: Lungs clear, Normal breath sounds, No respiratory distress Cardiovascular: Positive: RRR Musculoskeletal: Positive: Strength Intact, ROM Intact, No Edema - NO CALF TENDERNESS Neurological: Positive: Alert Psychological: Positive: Age Appropriate Behavior Skin Exam: Normal Diagnostics - EKG Cardiac Rate: NL - at 0906 Cardiac Rhythm: Sinus: Normal - 71bpm Ectopy: None ST Segment: Normal Course/Dx - Course Course Of Treatment: I discussed the EKG with the patient denies any ischemic changes or ectopy. The symptoms coincided with going up from 150-300 mg of Wellbutrin today therefore the symptoms have a high probability of being associated with the increased dose however the patient is on estrogen and we cannot adequately rule out a deep venous thrombosis or pulmonary embolus here in clinic or any pericarditis therefore recommended further evaluation emergency Department. I called to the [facility] emergency department spoke with the provider Grant. - Diagnoses Provider Diagnosis: Chest pain, Shortness of breath Discharge - Sign-Out/Discharge Documenting (check all that apply): Patient Departure All imaging exams completed and their final reports reviewed: No Studies - Discharge Plan Condition: Stable Disposition: HOME-RECOMMEND TO ED Patient Education Materials: Chest Pain (ED), Shortness of Breath (ED) Referrals: Mary Viveros NP [Primary Care Provider] - Additional Instructions: GO DIRECTLY TO THE EMERGENCY DEPARTMENT FOR FURTHER EVALUATION OF YOUR CHEST PAIN AND SHORTNESS OF BREATH. THEY MAY CHECK THE FOLLOWING BLOOD TESTS; D-DIMER TO EVALUATE FOR BLOOD CLOTS ( PULMONARY EMBOLIS) AND TROPONIN TO EVALUATE FOR HEART DAMAGE. - Billing Disposition and Condition Condition: STABLE Disposition: Home-Recommend to ED
[2018-11-10 09:18] VITALS: BP 107/66
--- OUTSIDE RECORDS SUMMARY | 2018-11-10 09:29 | XMS REPORT | Continuity of Care Document ---
:1985 External Reference #:[id number] Author Name Tristan Medina MD Address [address] [facility] [facility] [place] [place] [address] Care Team Providers Name Role Phone Erica Granger MD Care Team Information Credit Union Examiner Unavailable Mary Viveros FNP Primary Care Physician Unavailable Payers Date Identification Numbers Payment Provider Subscriber Effective: 2009 Policy Number: [id number] [employer] Flanagan [employer] Number: [id number] [address] [address] PayID: [id number] HARV[place]ER [place] [address] Expires: 2010 Policy Number: [id number] Medicaid Dayami Flanagan Group Name: 1 2 [address] PayID: [id number] [place] [address] Family History Date Family Member(s) Observation Comments Father Heart stent Social History Type Date Description Comments Sex Unknown Lives With Significant Other Tobacco Use Start: Unknown Never Smoked Cigarettes ETOH Use Currently consumes alcohol socially Recreational Drug Use Denies Drug Use Tobacco Use Start: Unknown Patient has never smoked Smoking Status Reviewed: 09/22/18 Patient has never smoked Enjoy Exercising Enjoys exercising Tattoo/Piercing Tattoo Currently Active Patient is currently sexually active Age [address] 15 Years Old # Partners in a Lifetime 2 # Partners in a Lifetime Has been with current partner for 2 years Allergies, Adverse Reactions, Alerts Active Allergies Reaction Severity Comments Date Cleocin hives 09/03/2010 Inactive Allergies NKDA 06/27/2009 Medications Active Medications SIG Qnty Indications Ordering Provider Date Charo San MD 2.4% Pads Fluoxetine HCL Unknown 10mg Capsules Fluoxetine HCL Unknown 20mg Capsules History Medications Metronidazole 1 tab po bid x 7 14tabs 616.10 Esvin Victoria, 12/09/2010 - 500mg days M.D. Unknown Tablets Diflucan 1 tab po x once 1tabs Esvin Victoria 11/26/2010 - 150mg Tablets for yeast M.D. Unknown infection Beyaz 1 po qd 1Pack Esvin Victoria, 11/26/2010 - 3-0.02-0.451mg M.D. Unknown Tablets Keflex 1 tab po q12hr 14caps Esvin Victoria 09/18/2010 - 500mg Capsules for 7 days M.D. 09/26/2010 Macrobid 1 po bid for 7 14caps 599.0 Esvin Victoria 09/03/2010 - 100mg Capsules days M.D. 09/18/2010 Cleocin 1 tab po q 12 hr 14caps 623.5 Esvin Victoria, 02/11/2010 - 300mg Capsules for 7 days M.D. 09/03/2010 Prednisone 1 tab po bid for 10tabs 708.9 Esvin Victoria 11/28/2009 - 20mg Tablets 5 days M.D. 01/12/2010 V22.1 Iron 1 Tab po qd 60tabs 648.23 Esvin Victoria M.D. 10/24/2009 - 325(65Fe) mg 09/03/2010 Tablets Sertraline HCL 1 Tab po qd 60tabs 300.00 Esvin Victoria M.D. 10/11/2009 - 25mg 09/03/2010 Tablets V22.1 Foltabs Plus 1 Tab PO Qday 60units V22.1 Esvin Victoria, 06/27/2009 - Dha M.DLu 09/03/2010 27-1&250mg Misc Vital Signs Date Vital Result Comment 11/26/2010 3:17pm BP Systolic Sitting Left Arm 105 mmHg BP Diastolic Sitting Left Arm 68 mmHg Body Temperature 98.3 F Heart Rate 83 /min Weight 145.00 lb Last Menstrual Period [id number] 10/23/2010 4:57pm Heart Rate 78 /min Respiratory Rate 18 /min Weight 147.00 lb Last Menstrual Period [id number] 09/03/2010 1:48pm Height 68 inches 5'8" Weight 145.00 lb BMI (Body Mass Index) 22.0 kg/m2 Last Menstrual Period [id number] 02/11/2010 12:13pm Heart Rate 49 /min Respiratory Rate 18 /min Height 68 inches 5'8" Weight 154.00 lb BMI (Body Mass Index) 23.4 kg/m2 Last Menstrual Period [id number] 01/22/2010 12:03pm Heart Rate 74 /min Respiratory Rate 18 /min Height 68 inches 5'8" Weight 154.00 lb BMI (Body Mass Index) 23.4 kg/m2 Last Menstrual Period [id number] 12/24/2009 2:01pm Heart Rate 69 /min Respiratory Rate 20 /min Height 68 inches 5'8" Weight 159.00 lb BMI (Body Mass Index) 24.2 kg/m2 Last Menstrual Period [id number] 12/02/2009 12:07pm Heart Rate 92 /min Respiratory Rate 18 /min Height 68 inches 5'8" Weight 187.00 lb BMI (Body Mass Index) 28.4 kg/m2 Last Menstrual Period [id number] 11/14/2009 8:07pm Heart Rate 82 /min Respiratory Rate 18 /min Height 68 inches 5'8" Weight 186.00 lb BMI (Body Mass Index) 28.3 kg/m2 Last Menstrual Period [id number] 11/07/2009 7:25pm Heart Rate 84 /min Respiratory Rate 18 /min Height 68 inches 5'8" Weight 187.00 lb BMI (Body Mass Index) 28.4 kg/m2 Last Menstrual Period [id number] 10/31/2009 6:41pm Heart Rate 84 /min Respiratory Rate 18 /min Height 68 inches 5'8" Weight 187.00 lb BMI (Body Mass Index) 28.4 kg/m2 Last Menstrual Period [id number] 10/23/2009 3:29pm Heart Rate 89 /min Height 68 inches 5'8" Weight 185.00 lb BMI (Body Mass Index) 28.1 kg/m2 Last Menstrual Period [id number] 10/11/2009 5:02pm Heart Rate 95 /min Respiratory Rate 18 /min Weight 181.00 lb Last Menstrual Period [id number] 09/12/2009 7:13pm Heart Rate 93 /min Respiratory Rate 18 /min Weight 172.00 lb Last Menstrual Period [id number] 09/12/2009 7:05pm Heart Rate 93 /min Respiratory Rate 18 /min Weight 172.00 lb Last Menstrual Period [id number] 08/29/2009 6:44pm Heart Rate 86 /min Respiratory Rate 18 /min Weight 167.00 lb Last Menstrual Period [id number] 08/15/2009 7:11pm Heart Rate 86 /min Weight 165.00 lb 08/02/2009 3:42pm Heart Rate 73 /min Respiratory Rate 18 /min Height 67 inches 5'7" Weight 164.00 lb BMI (Body Mass Index) 25.7 kg/m2 Last Menstrual Period [id number] 07/25/2009 8:55am Heart Rate 85 /min Respiratory Rate 20 /min Height 67 inches 5'7" Weight 157.00 lb BMI (Body Mass Index) 24.6 kg/m2 Last Menstrual Period [id number] 06/27/2009 3:13pm Heart Rate 85 /min Respiratory Rate 18 /min Height 67 inches 5'7" Weight 150.00 lb BMI (Body Mass Index) 23.5 kg/m2 Last Menstrual Period [id number] Results Test Date Facility Test Result H/L Range Note Affirm Test 11/26/2010 [facility] Gardnerella See Note [address] [place] [address] [phone] Trichomonas Vaginalis See Note 2 Carola Species See Note 3 Laboratory test 10/23/2010 [facility] ThinPrep Pap: See Note [address] Cervix/[place] [address] [phone] Laboratory test 09/03/2010 [facility] Urine Culture See Note [address] [place] [address] [phone] CBC/Manual 02/05/2010 [facility] White Blood Count 6.2 K/uL 3.1-[address] [place] [address] [phone] Red Blood Count 4.25 M/uL 3.90-5.40 Hemoglobin 12.9 gm/dL 11.6-15.8 Hematocrit 39.7 % 36.0-46.1 Mean Cell Volume 93.4 fl 80.9-99.0 Mean Corpuscular HGB 30.4 pg 25.9-32.7 Mean Corpuscular HGB Conc 32.5 g/dL 30.8-34.3 Platelet Count 303 K/uL 155-360 Red Cell Distri Width %CV 12.4 % 11.7-14.4 Mean Platelet Volume 9.4 fL 8.9-12.4 Total Cells Counted 100 #CELLS Neutrophils% 50 % 33-73 Lymph% 39 % 17-56 Platelet Estimate NORMAL Atypical Lymph% 2 % 0-7 Monocyte% 6 % 0-10 Eosinophil% 3 % 0-5 RBC Morphology NORMAL CBC 12/09/2009 [facility] White Blood Count 11.5 K/uL High 3.1-10.7 [address] [place] [address] [phone] Red Blood Count 2.62 M/uL Low 3.90-5.40 Hemoglobin 8.6 gm/dL Low 11.6-15.8 Hematocrit 26.8 % Low 36.0-46.1 Mean Cell Volume 102.3 fl High 80.9-99.0 Mean Corpuscular HGB 32.8 pg High 25.9-32.7 Mean Corpuscular HGB Conc 32.1 g/dL 30.8-34.3 Platelet Count 236 K/uL 155-360 Red Cell Distri Width %CV 14.5 % High 11.7-14.4 Mean Platelet Volume 9.8 fL 8.9-12.4 CBC 12/08/2009 [facility] White Blood Count 14.6 K/uL High 3.1-10.7 [address] [place] [address] [phone] Red Blood Count 2.90 M/uL Low 3.90-5.40 Hemoglobin 9.9 gm/dL Low 11.6-15.8 Hematocrit 29.1 % Low 36.0-46.1 Mean Cell Volume 100.3 fl High 80.9-99.0 Mean Corpuscular HGB 34.1 pg High 25.9-32.7 Mean Corpuscular HGB Conc 34.0 g/dL 30.8-34.3 Platelet Count 189 K/uL 155-360 Red Cell Distri Width %CV 14.0 % 11.7-14.4 Mean Platelet Volume 9.2 fL 8.9-12.4 Laboratory test 12/07/2009 [facility] Placenta, Third See Note 6 finding [address] [place], [place] [address] [phone] Type And Screen 12/07/2009 [facility] Patient Blood Type O POS [address] [place] [address] [phone] Antibody Screen NEGATIVE CBC 12/07/2009 [facility] White Blood Count 11.7 K/uL High 3.1-10.7 [address] [place] [address] [phone] Red Blood Count 3.86 M/uL Low 3.90-5.40 Hemoglobin 12.7 gm/dL 11.6-15.8 Hematocrit 37.7 % 36.0-46.1 Mean Cell Volume 97.7 fl 80.9-99.0 Mean Corpuscular HGB 32.9 pg High 25.9-32.7 Mean Corpuscular HGB Conc 33.7 g/dL 30.8-34.3 Platelet Count 262 K/uL 155-360 Red Cell Distri Width %CV 14.3 % 11.7-14.4 Mean Platelet Volume 9.4 fL 8.9-12.4 Laboratory test 12/07/2009 [facility] Rapid Plasma NONREACTIVE 7 finding [address] [place] [address] [phone] Comprehensive 11/28/2009 [facility] Glucose 87 mg/dL 76-11 Metabolic Panel [address] [place] [address] [phone] BUN 4 mg/dL Low 5-23 Creatinine 0.6 mg/dL 0.5-1.4 Glom Filtration Rate, Estimate >60 mL/min >60 If >60 mL/min >60 8 BUN/Creat 6.6 Sodium 142 mEq/L 136-145 Potassium 3.6 mEq/L 3.5-5.1 Chloride 107 mEq/L 98-107 Carbon Dioxide 25 mEq/L 21-32 Anion Gap 14 mEq/L 8-16 Calcium 8.4 mg/dL Low 8.5-10.1 Total Protein 6.4 g/dL 6.3-8.0 Albumin 2.7 g/dL Low 3.5-5.0 Globulin 3.7 gm/dL 1.9-4.3 Alb/Glob 0.7 Bilirubin,Total 0.8 mg/dL 0.2-1.2 Sgot/Ast 16 U/L 16-40 SGPT/Alt 27 U/L Low 30-65 Alkaline Phosphatase 194 U/L High 50-136 Liver Function Tests 11/28/2009 [facility] Total Protein 6.4 g/dL 6.3-8.0 [address] [place] [address] [phone] Albumin 2.7 g/dL Low 3.5-5.0 Bilirubin,Total 0.8 mg/dL 0.2-1.2 Bilirubin,Direct 0.1 mg/dL 0.1-0.4 Bilirubin,Indirect 0.7 mg/dL 0.0-0.9 Sgot/Ast 16 U/L 16-40 SGPT/Alt 27 U/L Low 30-65 Alkaline Phosphatase 194 U/L High 50-136 Globulin 3.7 gm/dL 1.9-4.3 Alb/Glob 0.7 Laboratory test finding 11/28/2009 [facility] Amylase 47 U/L 18-98 9 [address] [place] [address] [phone] Lipase 84 U/L 28-380 10 CBC 11/28/2009 [facility] White Blood Count 12.5 K/uL High 3.1-10.7 [address] [place] [address] [phone] Red Blood Count 3.66 M/uL Low 3.90-5.40 Hemoglobin 12.3 gm/dL 11.6-15.8 Hematocrit 36.5 % 36.0-46.1 Mean Cell Volume 99.7 fl High 80.9-99.0 Mean Corpuscular HGB 33.6 pg High 25.9-32.7 Mean Corpuscular HGB Conc 33.7 g/dL 30.8-34.3 Platelet Count 220 K/uL 155-360 Red Cell Distri Width %CV 14.4 % 11.7-14.4 Mean Platelet Volume 9.7 fL 8.9-12.4 CBC W/Automated 11/21/2009 [facility] White Blood 13.4 K/uL High 3.1-10.7 Diff [address] [place] [address] [phone] Red Blood Count 3.72 M/uL Low 3.90-5.40 Hemoglobin 12.1 gm/dL 11.6-15.8 Hematocrit 36.4 % 36.0-46.1 Mean Cell Volume 97.8 fl 80.9-99.0 Mean Corpuscular HGB 32.5 pg 25.9-32.7 Mean Corpuscular HGB Conc 33.2 g/dL 30.8-34.3 Platelet Count 255 K/uL 155-360 Red Cell Distri Width %CV 14.2 % 11.7-14.4 Mean Platelet Volume 9.6 fL 8.9-12.4 Neut% 74.1 % High 40.4-72.8 Lymph % 12.5 % Low 17.0-46.1 Barnes % 12.4 % 4.3-13.2 Eo% 0.7 % 0.0-6.6 Bas% 0.3 % 0.0-1.1 Neut# 9.9 K/uL High 1.0-7.0 Lymph # 1.7 K/uL 0.8-3.4 Barnes # 1.7 K/uL High 0.3-0.9 Eos # 0.1 K/uL 0.0-0.5 Baso # 0.0 K/uL 0.0-0.1 Red Cell Distri Width SD 48 fl High 3-47 Urinalysis With 11/12/2009 [facility] Urine Color YELLOW Yellow Microscopic [address] [place] [address] [phone] Urine Clarity CLEAR Clear Urine Glucose - Dipstick NEGATIVE mg/dL Negative Urine Bilirubin - Dipstick NEGATIVE Negative Urine Ketone TRACE mg/dL High Negative Urine Specific [place] 1.020 1.010-1.030 Urine Blood NEGATIVE Negative Urine PH 6.0 Low 6.5-7.5 Urine Protein - Dipstick NEGATIVE mg/dL Negative Urine Urobilinogen - Dipstick 0.2 E.U./dL 0.2-1.0 Urine Nitrite - Dipstick NEGATIVE Negative Urine Leuk Esterase NEGATIVE Negative Urine RBC 0-2 rbc/hpf 0-7 Urine WBC 0-2 wbc/hpf 0-7 Urine Epithelial Cells MANY NONESEEN 11 Urine Bacteria MODERATE NONESEEN High Urine Amorph Sediment MODERATE Negative Laboratory test 11/12/2009 [facility] CBS W/Automated See Note 12 finding [address] [place] [address] [phone] Culture If Indicated Comment See Note 13 Urine Culture See Note 14 CBC W/Automated 11/12/2009 [facility] White Blood 13.8 K/uL High 3.1-10.[address] [place] [address] [phone] Red Blood Count 3.40 M/uL Low 3.90-5.40 Hemoglobin 11.3 gm/dL Low 11.6-15.8 Hematocrit 33.6 % Low 36.0-46.1 Mean Cell Volume 98.8 fl 80.9-99.0 Mean Corpuscular HGB 33.2 pg High 25.9-32.7 Mean Corpuscular HGB Conc 33.6 g/dL 30.8-34.3 Platelet Count 249 K/uL 155-360 Red Cell Distri Width %CV 14.0 % 11.7-14.4 Mean Platelet Volume 9.4 fL 8.9-12.4 Neut% 76.9 % High 40.4-72.8 Lymph % 13.9 % Low 17.0-46.1 Barnes % 8.6 % 4.3-13.2 Eo% 0.5 % 0.0-6.6 Bas% 0.1 % 0.0-1.1 Neut# 10.6 K/uL High 1.0-7.0 Lymph # 1.9 K/uL 0.8-3.4 Barnes # 1.2 K/uL High 0.3-0.9 Eos # 0.1 K/uL 0.0-0.5 Baso # 0.0 K/uL 0.0-0.1 Red Cell Distri Width SD 49 fl High 3-47 Laboratory test 11/12/2009 [facility] CBS W/Automated See Note [address] Diff [place], [place] [address] [phone] Urinalysis With Microscopic See Note 16 CBS W/Automated 11/05/2009 [facility] White Blood 13.7 K/uL High 3.1-10.[address] [place] [address] [phone] Red Blood Count 3.37 M/uL Low 3.90-5.40 Hemoglobin 11.1 gm/dL Low 11.6-15.8 Hematocrit 33.1 % Low 36.0-46.1 Mean Cell Volume 98.2 fl 80.9-99.0 Mean Corpuscular HGB 32.9 pg High 25.9-32.7 Mean Corpuscular HGB Conc 33.5 g/dL 30.8-34.3 Platelet Count 258 K/uL 155-360 Red Cell Distri Width %CV 14.1 % 11.7-14.4 Mean Platelet Volume 9.4 fL 8.9-12.4 Neut% 72.1 % 40.4-72.8 Lymph % 16.2 % Low 17.0-46.1 Barnes % 10.9 % 4.3-13.2 Eo% 0.7 % 0.0-6.6 Bas% 0.1 % 0.0-1.1 Neut# 9.9 K/uL High 1.0-7.0 Lymph # 2.2 K/uL 0.8-3.4 Barnes # 1.5 K/uL High 0.3-0.9 Eos # 0.1 K/uL 0.0-0.5 Baso # 0.0 K/uL 0.0-0.1 Red Cell Distri Width SD 48 fl High 3-47 Dna Probe N. Gono 10/31/2009 [facility] Dna Probe For See Note 17 + C. Trach. [address] [place] [address] [phone] Dna Probe For N. Gonorrhoeae See Note 18 Laboratory test 10/31/2009 [facility] Vaginal Strep See Note [address] [place] [place] [address] [phone] CBC/Manual 10/23/2009 [facility] White Blood 16.9 K/uL High 3.1-[address] Count .7 [place] [address] [phone] Red Blood Count 3.17 M/uL Low 3.90-5.40 Hemoglobin 10.7 gm/dL Low 11.6-15.8 Hematocrit 31.0 % Low 36.0-46.1 Mean Cell Volume 97.8 fl 80.9-99.0 Mean Corpuscular HGB 33.8 pg High 25.9-32.7 Mean Corpuscular HGB Conc 34.5 g/dL High 30.8-34.3 Platelet Count 272 K/uL 155-360 Red Cell Distri Width %CV 13.7 % 11.7-14.4 Mean Platelet Volume 9.1 fL 8.9-12.4 Total Cells Counted 100 #CELLS Neutrophils% 76 % High 33-73 Lymph% 11 % Low 17-56 Platelet Estimate NORMAL Metamyelocyte% 5 % High -0 Band% 4 % 0-8 Monocyte% 3 % 0-10 Eosinophil% 1 % 0-5 Hypochromia 0-1+ Laboratory test 10/15/2009 [facility] Thyroid Stim 1.18 uIU/mL 0.49-4.[address] Hormone [place], [place] [address] [phone] Culture If Indicated Comment See Note 20 Urine Culture See Note 21 CBC/Manual 10/15/2009 [facility] White Blood 13.6 K/uL High 3.1-10.[address] [place] [address] [phone] Red Blood Count 3.24 M/uL Low 3.90-5.40 Hemoglobin 10.8 gm/dL Low 11.6-15.8 Hematocrit 32.0 % Low 36.0-46.1 Mean Cell Volume 98.8 fl 80.9-99.0 Mean Corpuscular HGB 33.3 pg High 25.9-32.7 Mean Corpuscular HGB Conc 33.8 g/dL 30.8-34.3 Platelet Count 262 K/uL 155-360 Red Cell Distri Width %CV 13.4 % 11.7-14.4 Mean Platelet Volume 8.8 fL Low 8.9-12.4 Total Cells Counted 100 #CELLS Neutrophils% 71 % 33-73 Lymph% 11 % Low 17-56 Platelet Estimate NORMAL Myelocyte% 1 % High -0 Metamyelocyte% 3 % High -0 Band% 4 % 0-8 Atypical Lymph% 1 % 0-7 Monocyte% 8 % 0-10 Eosinophil% 1 % 0-5 Anisocytosis 0-1+ Urinalysis With 10/15/2009 [facility] Urine Color YELLOW Yellow Microscopic [address] [place] [address] [phone] Urine Clarity CLEAR Clear Urine Glucose - Dipstick NEGATIVE mg/dL Negative Urine Bilirubin - Dipstick NEGATIVE Negative Urine Ketone NEGATIVE mg/dL Negative Urine Specific [place] 1.020 1.010-1.030 Urine Blood NEGATIVE Negative Urine PH 6.0 Low 6.5-7.5 Urine Protein - Dipstick NEGATIVE mg/dL Negative Urine Urobilinogen - Dipstick 0.2 E.U./dL 0.2-1.0 Urine Nitrite - Dipstick NEGATIVE Negative Urine Leuk Esterase NEGATIVE Negative Urine RBC 0-2 rbc/hpf 0-7 Urine WBC 0-2 wbc/hpf 0-7 Urine Epithelial Cells FEW NONESEEN Urine Bacteria MODERATE NONESEEN High Urine Mucus MODERATE NONESEEN Urine Amorph Sediment SMALL Negative Glucose,1 HR 09/24/2009 [facility] 1 HR Glucose,Post 112 mg/dL -138 [address] Glucola [place], [place] [address] [phone] 1 Hour Urine Glucose 1/10 % High Negative 1 Hour Urine Ketone NEGATIVE Negative Laboratory test 09/23/2009 [facility] Rubella IgG POSITIVE (Positive) finding [address] [place] [address] [phone] Rapid Plasma Reagin NONREACTIVE NONREACTIVE 23 Hepatitis 09/23/2009 [facility] Hepatitis A NONREACTIVE Non-Reactive [address] [place] [address] -IgM [phone] Hepatitis B Surface Antigen NEGATIVE Negative 25 Hepatitis B Core Antibody-IgM NONREACTIVE Negative 26 Hepatitis C Antibody NONREACTIVE Nonreactive Signal/Cutoff ratio 0.29 <0.80 27 Laboratory test 09/23/2009 [facility] Toxoplasma IgG <6.5 IU/mL 0.0-6.4 [address] [place] [address] [phone] Toxoplasma IgM Antibody <0.9 index 0.0-0.8 29 Parvovirus 09/23/2009 [facility] Parvovirus B19 7.7 index High 0.0-0.8 30 B19,Human [address] Igg Igg/[place] [address] [phone] Parvovirus B19 Igm 0.2 index 0.0-0.8 31 Laboratory test 09/13/2009 [facility] ThinPrep Pap: See Note [address] [place] [address] [phone] Afp,Tetra 07/09/2009 [facility] Afp Tetra REF#[id number] 33 Profile [address] [place] [address] [phone] Laboratory test 07/09/2009 [facility] Cystic [id number] 34 finding [address] Fibrosis,[place] [address] Analysis [phone] 1 POSITIVE FOR GARDNERELLA VAGINALIS 2 NEGATIVE FOR TRICHOMONAS VAGINALIS 3 POSITIVE FOR CAROLA SPECIES Testing Performed by: [place] [address] 4 PAP: FINAL REPORT SPECIMEN ADEQUACY: SPECIMEN SATISFACTORY FOR INTERPRETATION INTERPRETATION: NEGATIVE FOR INTRAEPITHELIAL LESION OR MALIGNANCY COMMENT: BENIGN CELLULAR CHANGES ASSOCIATED WITH INFLAMMATION THINPREP PREPARED PAP SLIDE # Prepared in the Cytology laboratory from the ThinPrep sample is 1 ThinPrep smear. PAP ACCESSI QUESTIONNAIRE 04/14 PERTINENT CLINICAL HISTORY FOR PAP (MANAGED CARE PROVIDER) CYTOLOGY (Check all that apply): ? Post ? Menopause? LMP date: 08/20/10 Last Pap: at [facility]? Y Abnormal Pap? If Yes, date: Post Hysterectomy? Is cervix present? Y If patient had related surgical procedure: Related Therapy: Significant Clinical History: V72.31 DISCLAIMER: The Pap smear is a screening test and not a diagnostic procedure. False negative and false positive results can and do occur for a number of reasons. Regular screening provides an aid in detecting treatable cervical abnormalities, but should not be used as the only means for detecting cervical dysplasia and carcinoma. REEMA Ayala 10/24/10 2221 5 COLONY COUNT ! 5,000 - 10,000 CFU/ml Organism 1 ! URETHRAL CARLOS 6 OPERATION/PROCEDURE Low transverse DIAGNOSIS: "PLACENTA, ": MEMBRANES, CORD, AND PLACENTA, WITHOUT SIGNIFICANT HISTOLOGIC ABNORMALITY. WYS/clf GROSS The specimen is additionally labeled "PLACENTA". This contains an 666 g.ovoid placenta measuring 21.2 x 17.5 x 2.3 cm in overall dimensions. The placenta is partially torn. A three-vessel umbilical cord is 29.2 cm in length, with a uniform diameter of 1.1 cm. It is free of true or false knots and inserts 5.4 cm away from the nearest placental margin. The subchorionic vessels arborize in a normal distribution to supply the entire steel-sainz subchorionic surface. The membranes demonstrate a central rupture and are delicate and translucent without foul smell or discoloration. The maternal surface consists of beefy red cotyledons without significant adherent clot, calcification, nor infarction. Binder Stripper Hand sections are submitted within three cassettes. /clf MICROSCOPIC Sections show normal appearing chorionic villi with appropriate vascularity. Intervillous fibrin is of a mild amount. The cord has three vessels without evidence of neutrophils in the vessel montoya or [place]. The amniotic membranes are have a single layer of cuboidal cells. The chorion is composed of eosinophilic decidualized cells with abundant cytoplasm. PRE OPERATIVE DIAGNOSIS shoulder dystocia REVIEW CODE CODE: I Signed JHON AHN MD 12/11/09 7 QUERY: @[employer] Pat ID: QUERY: @EMR Req #: 8 Note: Persistent reduction for 3 months or more in an eGFR <60 mL/min/1.73 m2 defines CKD. Patients with eGFR values >/=60 mL/min/1.73 m2 may also have CKD if evidence of persistent proteinuria is present. The original MDRD equation for estimated GFR is not valid for patients less than 18 years of age. Additional information may be found at [email or web address].org. 9 QUERY: @[employer] Pat ID: QUERY: @EMR Req #: 10 QUERY: @[employer] Pat ID: QUERY: @EMR Req #: 11 POSSIBLE UROGENITAL CONTAMINATION. 12 ORDERED UNDER WRONG 13 CULTURE TO FOLLOW 14 NO GROWTH: FINAL REPORT 15 ORDERED UNDER [place] VAIL 16 WRONG DOC 17 NEGATIVE FOR CHLAMYDIA TRACHOMATIS BY DNA HYBRIDIZATION ASSAY. THIS TEST IS APPROVED FOR OCULAR AND UROGENITAL SITES ONLY. 18 NEGATIVE FOR NEISSERIA GONORRHOEAE BY DNA HYBRIDIZATION ASSAY. THIS METHOD IS APPROVED FOR UROGENITAL SITES ONLY. 19 NO GROUP B STREPTOCOCCI ISOLATED 20 CULTURE TO FOLLOW 21 NO GROWTH: FINAL REPORT 22 POST GLUCOLA 23 PENDING; TEST PERFORMED ON MONDAYS AND THURSDAYS 24 IgM antibodies to HAV not detected; does not exclude early acute or recovered HAV innfection. 25 HBsAg not detected; does not exclude the possibility of exposure to or early acute infections with HBV. 26 IgM anti-HBc not detected. Does not exclude the possibility of exposure to or infection with HBV. 27 Antibodies to HCV not detected; does not exclude early acute HCV infection. 28 Negative <6.5 Equivocal 6.5 - 7.9 Positive >7.9 29 Negative <0.9 Indeterminate 0.9 - 1.0 Positive >1.0 Although the presence of Toxo IgM antibodies suggests an acute infection, low levels may persist for many months following infection. Performed at: RN - [facility] [address] [id number] [employer] Specialist: Abelardo Juarez MD, Phone: [phone] 30 Negative <0.9 Equivocal 0.9 - 1.1 Positive >1.1 31 Negative <0.9 Equivocal 0.9 - 1.1 Positive >1.1 32 CYTOLOGY SCREENER Screened by: CHASTITY Vargas(ASCP) PAP: FINAL REPORT SPECIMEN ADEQUACY: SPECIMEN SATISFACTORY FOR INTERPRETATION EXTENSIVE CYTOLYSIS INTERPRETATION: NEGATIVE FOR INTRAEPITHELIAL LESION OR MALIGNANCY COMMENT: THINPREP PREPARED PAP SLIDE # Prepared in the Cytology laboratory from the ThinPrep sample is 1 ThinPrep smear. PAP ACCESSI QUESTIONNAIRE 04/14 PERTINENT CLINICAL HISTORY FOR PAP (MANAGED CARE PROVIDER) CYTOLOGY (Check all that apply): ? Y Post ? Menopause? LMP date: 02/28/09 Last Pap: at [facility]? N Abnormal Pap? N If Yes, date: If patient had related surgical procedure: Related Therapy: Significant Clinical History: V22.1; 27 WEEKS ; LAST PAP 2008: NO ABNORMAL CYTOLOGY DISCLAIMER: The Pap smear is a screening test and not a diagnostic procedure. False negative and false positive results can and do occur for a number of reasons. Regular screening provides an aid in detecting treatable cervical abnormalities, but should not be used as the only means for detecting cervical dysplasia and carcinoma. REEMA Ayala 09/16/09 33 FORWARDED TO REFERENCE LABORATORY. 34 FORWARDED TO REFERENCE LABORATORY. Procedures Date Code Description Status 09/30/2018 72406 Eye Exam Est Patient Comprehensive Completed 09/22/2018 [id number] Eye Exam Est Patient Comprehensive Completed 09/20/2018 12403 Eye Exam New Patient Comprehensive Completed 09/07/2014 75744 Anesthesia, Delivery Completed 11/26/2010 70265 Removal Of Contraceptive Completed 12/24/2009 32883 insertion of contraception Completed 12/07/2009 99665 Section Only Completed 12/07/2009 12813 Section Global Care Completed 08/02/2009 08207 Intravenous Infusion, For Therapy, Prophylaxis, Or Completed Diagnosis 08/02/2009 80180 Non-Stress Test (NST) Completed 12/12/2007 08271 Event Monitor Inter/Review Only Completed 12/02/2007 62518 EKG-Tracing And Report Completed Encounters Type Date Location Provider Dx Diagnosis Office Visit 11/26/2010 electronic warfare technical Office Esvin Victoria M.D. V25.9 Contraceptive 3:20p Management Unspec 112.1 Candidiasis [facility] Office Visit 10/23/2010 4:20p electronic warfare technical Office Esvin Victoria V72.31 Routine Sales Counselor M.DLu Examination 625.0 Dyspareunia Office Visit 09/03/2010 2:00p electronic warfare technical Office Esvin Victoria, 599.0 UTI Urinary Tract M.D. Infection Site Not Spec Office Visit 02/11/2010 11:20a electronic warfare technical Office Esvin Victoria 599.0 UTI Urinary Tract M.D. Infection Site Not Spec 623.5 Leukorrhea Not Spec as Infective Office Visit 12/24/2009 1:40p electronic warfare technical Office Esvin Victoria V58.41 Postoperative Wound M.D. Closure Encounter V25.9 Contraceptive Management Unspec Office Visit 06/27/2009 2:00p electronic warfare technical Office Esvin Victoria V22.1 Supervison Of Jodi Normal Other 641.03 Placenta Previa W/O Hemorr Antepartum Condition Or Compl Office Visit 12/02/2007 10:15a Cardiology Office [facility] 785.1 Palpitations Jodi Tobin, [facility] Plan of Treatment Future Appointment(s):11/11/2018 10:15 am - Tristan Medina MD at [id number]/ 28/2019 - Tristan Medina MDH57.02 AnisocoriaComments:- anisocoria worse in light: - differential was pharmacologic, however, patient has stopped each of the medications that could contribute- in setting of activation to dilute pilocarpine, suggestive of adie tonic pupil- differential also includes cniii, oculomotor nerve palsy- recommend neuro-imaging tofurther evaluation- 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
== END 2018-11-10 10:00 | disposition home health service (06) ==
LOC: UCCORT 09:01
DX: R07.9 Chest pain, unspecified (principal); R06.02 Shortness of breath; M32.9 Systemic lupus erythematosus, unspecified; F32.9 Major depressive disorder, single episode, unspecified
CPT/HCPCS: 93005; 99212; G0463